=== PATIENT | female | born 1970 | race Caucasian/White ===

== ENCOUNTER 2018-08-18 13:36 | Emergency (ER) | payer OTHER ==
[~2018-08-18] VITALS: Ht 160 cm; Wt 70.4 kg
[~2018-08-18 13:36] MED LIST: ACET-1145 PO; FER325 PO; NAPR-985 PO; [UNRECOGNIZED DRUG - CODE]
[2018-08-18 13:39] VITALS: Ht 160 cm; Wt 70.4 kg
[2018-08-18] MEDS ORDERED: SOD CHLORIDE 0.9% 1,000 ML IV STA (13:51)
[2018-08-18] MEDS ORDERED: MECLIZINE 12.5 MG TAB PO ONE (14:00)
[2018-08-18] MEDS ORDERED: LOSA1TAB22 PO (14:25)
[2018-08-18] MEDS ORDERED: ERGO500013 PO (14:26)
[2018-08-18] MEDS ORDERED: FER325 PO (14:26)
[2018-08-18 14:31] VITALS: BP 137/65; PULSE 72; RESP 18
[2018-08-18] MEDS ORDERED: POTASSIUM CHLORIDE (SR) 20 MEQ TAB PO STA (14:48)
[2018-08-18] MEDS ORDERED: MECL12.574 PO (14:50)
--- NOTE | 2018-08-18 14:52 | ERD ---
ER Documentation Chief Complaint Chief Complaint fatigue, dizziness, chest pain & hypertension since yesterday HPI Patient is a 48-year-old female with hypertension and anemia who presents with right-sided chest pain and dizziness. She feels dizziness more than pain. She is a history of anemia and said that her blood count was 7.5. She was sent to the ER by her primary doctor for possible blood transfusion. She also mentioned that her blood pressure was high yesterday. She does not want to stay in the hospital she does not have to. Upon review of old medical records the patient has multiple visits to the ER with admissions. She does have a primary doctor. ROS All systems reviewed and are negative except as per history of present illness. Medications Home Meds Active Scripts Meclizine Hcl* (Antivert*) 12.5 Mg Tab, 25 MG PO Q6H PRN for DIZZINESS, #20 TAB Prov:JESSICA TREADWELL MD 08/18/18 Reported Medications Ferrous Sulfate* (Ferrous Sulfate*) 325 Mg Tabec, 325 MG PO TID, TAB 08/18/18 Ergocalciferol (Vitamin D2) (VITAMIN D2) 50,000 Unit Capsule, 12913 UNIT PO Q TUES, CAP 08/18/18 Losartan-Hydrochlorothiazide (Losartan-HCTZ) 50-12.5 Mg Tab, 1 TAB PO DAILY, TAB 08/18/18 Discontinued Reported Medications Labetalol Hcl (Trandate) 200 Mg Tablet 06/24/10 Discontinued Scripts Ferrous Sulfate* (Ferrous Sulfate*) 325 Mg Tabec, 325 MG PO DAILY, #60 TAB Prov:RICO GALDAMEZ PA-C 12/06/14 Naproxen* (Naprosyn*) 500 Mg Tablet, 500 MG PO BID PRN for PAIN AND/OR INFLAMMATION, #30 TAB Prov:RICO GALDAMEZ PA-C 12/06/14 Acetaminophen-Codeine (Tylenol With Codeine #3 Tablet) 300-30 Mg Tablet, 1 TAB PO Q4H PRN for PAIN, #30 TAB Prov:RICO GALDAMEZ PA-C 12/06/14 Allergies Allergies: Coded Allergies: No Known Allergy (Verified , 08/18/18) PMhx/Soc History of Surgery: Yes (FIBROIDS; CSECTION) Anesthesia Reaction: No Hx Neurological Disorder: No Hx Respiratory Disorders: No Hx Cardiac Disorders: Yes (HTN) Hx Psychiatric Problems: No Hx Miscellaneous Medical Probl: No Hx Alcohol Use: No Hx Substance Use: No Hx Tobacco Use: No Smoking Status: Never smoker FmHx Family History: No diabetes Physical Exam Vitals Vital Signs Date Temp Pulse Resp B/P (MAP) Pulse Ox O2 O2 Flow FiO2 Time Delivery Rate 08/18/18 72 18 137/65 99 Room Air 14:31 (89) 08/18/18 98.2 77 18 160/80 97 13:39 (106) Physical Exam Const: No acute distress Head: Atraumatic Eyes: Normal Conjunctiva ENT: Normal External Ears, Nose and Mouth. Neck: Full range of motion. No meningismus. Resp: Clear to auscultation bilaterally Cardio: Regular rate and rhythm, no murmurs Abd: Soft, non tender, non distended. Normal bowel sounds Skin: No petechiae or rashes Back: No midline or flank tenderness Ext: No cyanosis, or edema Neur: Awake and alert, cranial nerves II through XII intact, strength is 5 out of 5 in all 4 extremities, no slurred speech Psych: Normal Mood and Affect Result Diagram: 08/18/18 1407 08/18/18 1407 Results 24 hrs Laboratory Tests Test 08/18/18 14:07 White Blood Count 6.7 10^3/ul Red Blood Count 4.01 10^6/ul Hemoglobin 8.6 g/dl Hematocrit 28.8 % Mean Corpuscular Volume 71.8 fl Mean Corpuscular Hemoglobin 21.4 pg Mean Corpuscular Hemoglobin Concent 29.9 g/dl Red Cell Distribution Width 20.3 % Platelet Count 427 10^3/UL Mean Platelet Volume 9.2 fl Immature Granulocytes % 0.300 % Neutrophils % 63.8 % Lymphocytes % 26.1 % Monocytes % 7.4 % Eosinophils % 1.8 % Basophils % 0.6 % Nucleated Red Blood Cells % 0.0 /100WBC Immature Granulocytes # 0.020 10^3/ul Neutrophils # 4.3 10^3/ul Lymphocytes # 1.8 10^3/ul Monocytes # 0.5 10^3/ul Eosinophils # 0.1 10^3/ul Basophils # 0.0 10^3/ul Nucleated Red Blood Cells # 0.0 10^3/ul Prothrombin Time 12.7 Sec Prothrombin Time Ratio 1.0 INR International Normalized Ratio 0.94 Activated Partial Thromboplast Time 29.4 Sec Sodium Level 139 mmol/L Potassium Level 3.4 mmol/L Chloride Level 105 mmol/L Carbon Dioxide Level 27 mmol/L Anion Gap 7 Blood Urea Nitrogen 15 mg/dl Creatinine 0.75 mg/dl Est Glomerular Filtrat Rate mL/min > 60 mL/min Glucose Level 106 mg/dl Calcium Level 9.4 mg/dl Total Bilirubin 0.5 mg/dl Direct Bilirubin 0.00 mg/dl Indirect Bilirubin 0.5 mg/dl Aspartate Amino Transf (AST/SGOT) 33 IU/L Alanine Aminotransferase (ALT/SGPT) 29 IU/L Alkaline Phosphatase 58 IU/L Troponin I < 0.012 ng/ml Total Protein 7.4 g/dl Albumin 4.3 g/dl Globulin 3.10 g/dl Albumin/Globulin Ratio 1.38 Current Medications Medications Dose Sig/Ivana Start Time Status Last (Trade) Ordered Route PRN Stop Time Admin Dose Reason Admin Sodium 1,000 ml @ Q1H STAT 08/18/18 DC 08/18/18 Chloride 1,000 mls/hr IV 13:51 08/18/18 14:25 14:50 Meclizine 25 mg ONCE ONCE 08/18/18 DC 08/18/18 HCl PO 14:00 08/18/18 14:25 (Antivert) 14:01 Potassium 40 meq ONCE STAT 08/18/18 DC 08/18/18 Chloride PO 14:48 08/18/18 15:49 (Klor-Con 20) 14:51 Procedures/MDM EKG read by me: Rate/Rhythm: Regular rate and rhythm at a rate of 79 Intervals: Normal Impression: No evidence of ischemia or arrhythmia Patient is a 48-year-old female presents with anemia. The patient has a hemoglobin of 8.6 and does not require transfusion. She was given normal saline 1 L bolus and meclizine and feels better. I will discharge her with a prescription for meclizine. I doubt stroke. I believe the risk of doing a CT scan of the brain with benefits. The patient will be discharged but will need to follow-up with her primary doctor within 24-48 hours. She can return sooner for any worsening symptoms. Departure Diagnosis: Primary Impression: Anemia Anemia type: unspecified type Qualified Codes: D64.9 - Anemia, unspecified Additional Impressions: Dizziness Hypokalemia Condition: Fair Patient Instructions: Anemia, Dizziness, Unk Cause Referrals: Dr. Barton Additional Instructions: Llame al doctor MAANA y moe navdeep SAM PARA DENTRO DE 1-2 CHEN.Dgale a la secretaria que nosotros le instruimos hacer esta sam.Avise o llame si nichols condicin se empeora antes de la sam. Regresa aqui si peor o no mejor. JESSICA TREADWELL MD Aug 18, 2018 14:52
== END 2018-08-18 15:56 | disposition home or self-care (01) ==
LOC: E/R 13:36
DX: D64.9 Anemia, unspecified (principal); I10 Essential (primary) hypertension; E87.6 Hypokalemia; R07.9 Chest pain, unspecified
CPT/HCPCS: 36415; 80053; 84484; 85025; 85610; 85730; 86850; 86900; 86901; 96360; J7030; Z7502; Z7610